=== PATIENT | female | born 1940 | race Caucasian/White ===

== ENCOUNTER 2023-09-23 18:34 | Emergency (ER) | payer MEDICARE, OTHER, SELFPAY ==
[2023-09-23 18:39] VITALS: BP 144/91
[2023-09-23 18:46] VITALS: BMI 32.9
[2023-09-23 18:58] LABS: % Basophils 0.3 % (0-2); % Eosinophils 1.2 % (0-6); % Immature Granulocytes 0.3 % (0-0.5); % Lymphocytes 24.5 % (20.5-51.1); % Monocytes 12.4 % (1.7-9.3); % Neutrophils 61.3 % (42.2-75.2); Absolute Eosinophils 0.1 10^3/uL (0-0.7); Absolute Lymphocytes 1.7 10^3/uL (1.2-3.4); Absolute Monocytes 0.9 10^3/uL (0.1-0.6); Absolute Neutrophils 4.2 10^3/uL (1.4-6.5); Hematocrit 33.5 % (37.0-47.0); Hemoglobin 11.4 g/dL (12.0-16.0); Mean Corpuscular Hgb 29.4 pg (27.0-31.0); Mean Corpuscular Volume 86.3 fL (81.0-99.0); Mean Platelet Volume 9.4 fL (7.4-10.4); Nucleated Red Blood Cells % 0 %; Platelet Count 229 10^3/uL (130-400); Red Blood Cell Count 3.88 10^6/uL (4.20-5.40); Red Cell Dist. Width 13.6 % (11.5-14.5); White Blood Cell Count 6.8 10^3/uL (4.8-10.8)
[2023-09-23 19:00] VITALS: BP 144/87
[2023-09-23 19:18] LABS: ALT (SGPT) 23 U/L (0-35); AST (SGOT) 26 U/L (14-36); Albumin 4.1 g/dl (3.5-5.0); Alkaline Phosphatase 98 U/L (38-126); Blood Urea Nitrogen 29 mg/dl (7-17); Calcium 9.6 mg/dl (8.4-10.2); Carbon Dioxide 26 mmol/L (22-30); Chloride 97 mmol/L (98-107); Estimated Creatinine Clearance 43 ml/min; Glucose 97 mg/dl (70-99); Potassium 4.3 mmol/L (3.5-5.1); Sodium 131 mmol/L (135-145); Total Bilirubin 0.3 mg/dl (0.2-1.3); Total Protein 6.2 g/dl (6.3-8.2); eGFR > 60.00
[2023-09-23 19:21] LABS: Troponin I < 0.012 ng/ml
[2023-09-23] MEDS: TORADOL 15 MG IV (19:27)
[2023-09-23 19:43] LABS: D-Dimer 0.44 ug/mlFEU (0.00-0.50)
--- NOTE | 2023-09-23 19:55 | ED.GENMED ---
History of Present Illness
General
Chief Complaint: Chest Pain
Source: patient
Exam Limitations: none
Time Seen by Provider: 09/23/23 19:10
Nursing documentation reviewed up to this point in time: agreed with
History of Present Illness
History of Present Illness:
Patient presents to ED secondary to worsening chest pain as well as shortness of breath today, although her symptoms have been ongoing for over 2 weeks intermittently. Chest pain described as sharp, left-sided, nonradiating, without any alleviating
or exacerbating factors. Denies trauma. Denies nausea or vomiting. Denies diaphoresis. Denies recent illness. Denies recent travel. Denies recent surgery. Denies leg pain or swelling. Denies coughing. At the time of exam in ED, patient
states that her symptoms have improved significantly.
Past History
Past History
ED Past Medical History: HTN, Hypercholesterolemia and Hypothyroidism
ED Past Surgical History: None
Social History
Tobacco: Non-smoker
Alcohol: None
Drug: None
Personal:
Living: with family
Review of Systems
Review of Systems
Allergies reviewed?: Yes
All Other Systems: ROS reviewed and negative except as documented in HPI and ROS
Constitutional: Reports no symptoms
EENT: Reports no symptoms
Respiratory: Reports trouble breathing
Cardiac: Reports chest pain
ABD/GI: Reports no symptoms
Musculoskeletal: Reports no symptoms
Skin: Reports no symptoms
Neurological: Reports no symptoms
Phy Exam
Physical Exam
Physical Exam:
Physical Exam
General: no apparent distress, not acutely ill. afebrile
Head: nc/at. eomi
Neck: supple. no meningeal signs.
Heart: s1/s2 regular rate and rhythm, no murmur. equal radial pulses.
Lungs: no acute respiratory distress. clear bilaterally. mild left anterior chest wall tenderness to palpation, without ecchymosis/erythema/swelling
Abdomen: normal bowel sounds. not tender.
Neuro: alert and oriented. no focal neurological deficits
Skin: no rash
Psychiatric: well kept. interactive and cooperative
Extremities: no edema. no calf tenderness.
Scores
Heart Score for Chest Pain Patients
STEMI patient?: No
History: Slightly or Non-Suspicious
ECG: Normal
Age: >/= 65 years
Risk Factors: 1 or 2 Risk Factors
Troponin: </= Normal Limit
Heart Score for Chest Pain Patients: 3
Heart Score Risk: 2.5% MACE over next 6 weeks
Course
Orders/Labs/Results
Orders:
Orders
09/23/23 18:49
EKG [Electrocardiogram (*1)] Urgent
Reason for Study: Chest Pain
EKG- Treatment ONCE
09/23/23 18:51
CMP [Comprehensive Metabolic Panel] Urgent
Complete Blood Count/With Diff Urgent
Troponin I Urgent
09/23/23 19:19
Ketorolac [Toradol] 15 mg IV NOW STA
09/23/23 19:20
CR Chest - 2 Views Urgent
Comment:
Reason For Exam: chest pain
09/23/23 19:22
D-Dimer Urgent
09/23/23 19:48
0.9% Sodium Chloride 1000 ml [Nss] 1,000 ml IV BOLUS
09/23/23 20:27
EKG- Treatment ONCE
09/23/23 21:30
Electrocardiogram (*1) Urgent
Reason for Study: Chest Pain
09/23/23 22:03
Troponin I Urgent
09/24/23 00:14
Rivaroxaban [Xarelto] 15 mg PO NOW STA
Abnormal Lab Results
09/23/23
18:51
RBC 3.88 L 10^6/uL
(4.20-5.40)
Hgb 11.4 L g/dL
(12.0-16.0)
Hct 33.5 L %
(37.0-47.0)
Absolute Monos (auto) 0.9 H 10^3/uL
(0.1-0.6)
Monocytes % 12.4 H %
(1.7-9.3)
Sodium 131 L mmol/L
(135-145)
Chloride 97 L mmol/L
(98-107)
BUN 29 H mg/dl
(7-17)
Total Protein 6.2 L g/dl
(6.3-8.2)
09/23/23 18:51
09/23/23 18:51
Vital Signs
Initial and Last Documented VS:
Initial Vital Signs
Temp Pulse Resp BP Pulse Ox
98.3 F 60 12 144/91 97
09/23/23 18:39 09/23/23 18:39 09/23/23 18:39 09/23/23 18:39 09/23/23 18:39
Last Documented Vital Signs
Temp Pulse Resp BP Pulse Ox
98.3 F 62 18 144/70 93
09/23/23 18:39 09/24/23 07:24 09/24/23 07:24 09/24/23 07:24 09/24/23 07:24
MDM/Problems Addressed
MDM/Problems Addressed:
Patient with an unremarkable workup in ED, including repeat blood work and EKG. Patient remains asymptomatic with stable vital signs during extended course of observation. History and exam does reveal likely dehydration, likely contributing to her
symptoms, as patient states that she is 'never thirsty'. As such, advised patient to increase water intake at home, along with cardiology follow-up as an outpatient.
*EKG
Interpreted by ED Provider?: Yes
EKG Intrepretation Date: 09/23/23
Heart Rate: 60
Rate: normal
Rhythm: ventricular paced
*Critical Care Note
Total Time (30-74mins, 75-104mins- exclusive of procedures): Not Applicable
ED Attending Note
-
Portions of this chart may have been created with voice recognition software.� Occasional wrong word or��sound alike� substitutions may have occurred due to the inherent limitations of voice recognition software.
Discharge Plan
Departure
Patient Disposition: Home (Routine Discharge)
Date of Disposition: 09/23/23
Time of Disposition: 23:34
Patient with high blood pressure during this ER visit?: Yes
Condition: Fair
Discharge Problem:
Dehydration, Chest pain
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
Prescriptions:
No Action
atorvastatin 20 MG tablet
20 mg PO QPM
levothyroxine 75 MCG tablet
100 mcg PO DAILY
aspirin 81 MG tablet,chewable
81 mg PO QPM
escitalopram oxalate [Lexapro] 10 mg Tablet
10 mg PO HS
isosorbide mononitrate 30 mg Tablet Extended Release 24 Hr
30 mg PO DAILY Qty: 1 0RF
nifedipine 30 mg Tablet Extended Release
30 mg PO QPM Qty: 1 0RF
metoprolol succinate 25 mg Tablet Extended Release 24 Hr
25 mg PO DAILY Qty: 1 0RF
Oyster Brian 500 mg Tablet
500 mg PO BID
memantine [Namenda] 5 mg Tablet
5 mg PO BID
Xarelto 15 mg Tablet
15 mg PO QPM
hydralazine 10 mg tablet
25 mg PO PRN PRN (Reason: sbp>180)
meclizine 12.5 mg Tablet
15 mg PO BID
Referrals:
UNKNOWN - PT DOES,NOT KNOW [Family Provider] -
Activity Restrictions/Additional Instructions:
As discussed, please follow-up with your primary care physician and/or sidewalk repairer for reevaluation.
Interventions
Interventions:
*Risk Screen - Suicide Last Done: 09/23/23 18:39
*General Assessment Last Done: 09/23/23 18:46
*Neglect/Abuse Screening Last Done: 09/23/23 18:39
ED- Fall Risk Assessment Last Done: 09/23/23 18:46
*ED COVID-19 Vaccine History Last Done: 09/23/23 18:39
*Nursing Disposition Last Done: 09/24/23 08:30
ED- Cardiac Assessment Last Done: 09/23/23 18:46
Discharge Date and Time
Discharge Date/Time: 09/24/23 08:45
Print Language: ICELANDIC
[2023-09-23 20:00] VITALS: BP 161/80
[2023-09-23] MEDS: NSS 1000 IV (20:45)
[2023-09-23 21:00] VITALS: BP 160/80
[2023-09-23 22:00] VITALS: BP 167/75
[2023-09-23 22:36] LABS: Troponin I < 0.012 ng/ml
[2023-09-23 23:00] VITALS: BP 149/76
[2023-09-24] MEDS: XARELTO 15 MG PO (01:45)
[2023-09-24 04:29] VITALS: BP 179/80
[2023-09-24 07:24] VITALS: BP 144/70
== END 2023-09-24 08:45 | disposition home or self-care (01) ==
LOC: EMR 18:34
PROVIDERS: Emergency Medicine; EMERGENCY PHYSICIAN Emergency Medicine
DX: R07.89 Other chest pain (principal); R06.02 Shortness of breath; R42 Dizziness and giddiness; E86.0 Dehydration; I10 Essential (primary) hypertension; E03.9 Hypothyroidism, unspecified; E78.00 Pure hypercholesterolemia, unspecified; Z79.82 Long term (current) use of aspirin
CPT/HCPCS: 99285; 96374; 96361 ×3; 71046; 80053; 84484; 85025; 85379; 93005

== ENCOUNTER → 2024-01-26 10:05 | Day surgery (SDC) | payer MEDICARE, OTHER, SELFPAY ==
[2024-01-26 11:16] LABS: Hematocrit 37.5 % (37.0-47.0); Hemoglobin 12.4 g/dL (12.0-16.0); Mean Corp Hgb Conc. 33.1 g/dL (33.0-37.0); Mean Corpuscular Hgb 29.7 pg (27.0-31.0); Mean Corpuscular Volume 89.9 fL (81.0-99.0); Mean Platelet Volume 9.8 fL (7.4-10.4); Platelet Count 264 10^3/uL (130-400); Red Blood Cell Count 4.17 10^6/uL (4.20-5.40); Red Cell Dist. Width 13.5 % (11.5-14.5); White Blood Cell Count 5.9 10^3/uL (4.8-10.8)
[2024-01-26 11:28] LABS: INR 1.21; PT 15.6 Sec (11.4-14.6)
[2024-01-26 11:29] LABS: APTT 35.8 Sec (23.4-35.0)
[2024-01-26 11:39] LABS: Blood Urea Nitrogen 17 mg/dl (7-17); Calcium 10.1 mg/dl (8.4-10.2); Carbon Dioxide 35 mmol/L (22-30); Chloride 94 mmol/L (98-107); Glucose 103 mg/dl (70-99); Potassium 4.5 mmol/L (3.5-5.1); Sodium 135 mmol/L (135-145); eGFR 49.86
== END ==
LOC: SDSPAT 10:05
PROVIDERS: ATTENDING PHYSICIAN Obstetrics & Gynecology; FAMILY PHYSICIAN Internal Medicine
DX: Z01.812 Encounter for preprocedural laboratory examination (principal)
CPT/HCPCS: 85027; 36415; 80048; 85610; 85730; 86850; 86900; 86901

== ENCOUNTER 2024-02-02 06:14 | Day surgery (SDC) | payer MEDICARE, OTHER, SELFPAY ==
[2024-01-26 13:47] VITALS: BMI 32.2
--- NOTE | 2024-01-28 09:33 | PTCARENOTE ---
Patients 01/25 GFR 49.86- Ivelisse @ Dr. Cooley office notified
[2024-02-02] VITALS (10 sets, daily range): BP systolic 96–140; BP diastolic 51–92; BMI 32.2
[2024-02-02] MEDS: NORMOSOL-R/PLASMALYTE-A 1000 IV (06:58)
== END 2024-02-02 12:00 | disposition home or self-care (01) ==
LOC: SDS 06:14
PROVIDERS: ATTENDING PHYSICIAN Obstetrics & Gynecology; FAMILY PHYSICIAN Internal Medicine
DX: N81.3 Complete uterovaginal prolapse (principal); N39.3 Stress incontinence (female) (male); N36.41 Hypermobility of urethra
CPT/HCPCS: 57120; 57250; 86900; 86901

== ENCOUNTER 2025-01-05 20:59 | Emergency (ER) | payer MEDICARE, OTHER, SELFPAY ==
[2025-01-05 21:02] VITALS: BP 143/87
[2025-01-05 21:03] VITALS: BP 143/87
[2025-01-05 21:20] LABS: Hematocrit 35.3 % (37.0-47.0); Hemoglobin 11.6 g/dL (12.0-16.0); Mean Corp Hgb Conc. 32.9 g/dL (33.0-37.0); Mean Corpuscular Volume 87.8 fL (81.0-99.0); Nucleated Red Blood Cells % 0 %; Platelet Count 198 10^3/uL (130-400); Red Cell Dist. Width 13.4 % (11.5-14.5)
[2025-01-05 21:41] LABS: ALT (SGPT) 33 U/L (0-35); AST (SGOT) 29 U/L (14-36); Albumin 4.1 g/dl (3.5-5.0); Alkaline Phosphatase 68 U/L (38-126); Blood Urea Nitrogen 22 mg/dl (7-17); Calcium 8.8 mg/dl (8.4-10.2); Carbon Dioxide 25 mmol/L (22-30); Chloride 102 mmol/L (98-107); Glucose 107 mg/dl (70-99); Potassium 4.0 mmol/L (3.5-5.1); Sodium 133 mmol/L (135-145); Total Protein 6.3 g/dl (6.3-8.2); eGFR > 60.00
[2025-01-05 22:00] VITALS: BP 119/79
[2025-01-05 22:09] VITALS: BP 135/78
--- NOTE | 2025-01-05 22:52 | ED.GENMED ---
History of Present Illness
General
Chief Complaint: Change in Mental Status
Source: family (Daughter)
Time Seen by Provider: 01/05/25 22:31
History of Present Illness
History of Present Illness:
84-year-old female presents to the emergency room with her daughter for evaluation of altered mental status. Daughter states the patient began speaking gibberish. Patient is fluent both [place] and Divehi but what she was speaking did not make
sense in either language. Patient seemed to be frustrated with her inability to get out what she was trying to say. Daughter took her blood pressure and noted that she was somewhat hypotensive with a systolic in the mid 80s. Daughter states the
patient looked pale at that time as well. She had taken her evening medications a little while prior to this event. However the patient is been on the same medications for years without any change in her dose. Daughter believes the patient does
not drink enough fluids. They have noticed the patient has become more confused over time. Though she has never been formally evaluated daughter feels quite certain that she has dementia. She has been sundowning over the past few weeks. Her
primary care doctor has prescribed Seroquel. Currently the patient is speaking normally and appears to be back to her baseline. Daughter notes the patient is currently taking both aspirin and Xarelto.
Past History
Past History
ED Past Medical History: HTN, Hypercholesterolemia and Hypothyroidism
ED Past Surgical History: None
Social History
Tobacco: Non-smoker
Alcohol: None
Drug: None
Personal:
Living: with family
Phy Exam
Physical Exam
Physical Exam:
General: Awake, Alert, Oriented X2. No acute distress.
Vitals: unremarkable
Head: Atraumatic
Eyes: Pupils equal, EOMI, mildly dry mucosa
Throat: Airway intact, no exudates
Neck: Trachea midline
Lungs: Clear and equal b/l
Heart: Regular rate, no murmurs
Abd: Soft, Nontender, No pulsatile mass
Neuro: Cranial nerves intact, muscle strength equal bilaterally, cerebellar exam normal
Skin: Warm, dry, no rash
Extremities: pulses equal b/l, no edema
Course
Orders/Labs/Results
Orders:
Orders
01/05/25 21:10
CMP [Comprehensive Metabolic Panel] Urgent
Complete Blood Count/With Diff Urgent
01/05/25 21:51
CT Head W/o Iv Contrast Urgent
Comment:
Reason For Exam: Change in mentation
01/05/25 22:36
Urinalysis Reflex To Culture Urgent
Date Specimen was Collected: 01/05/25
Time Specimen was Collected: 22:34
Urine Microscopic Reflex Cult Urgent
Urine Culture Urgent
KRISTINE Source: U
Specimen Description:
Date Specimen was Collected: 01/05/25
Time Specimen was Collected: 22:34
01/06/25 00:30
Cephalexin Monohydrate [Keflex] 500 mg PO NOW STA
Abnormal Lab Results
01/05/25 01/05/25
21:10 22:36
RBC 4.02 L 10^6/uL
(4.20-5.40)
Hgb 11.6 L g/dL
(12.0-16.0)
Hct 35.3 L %
(37.0-47.0)
MCHC 32.9 L g/dL
(33.0-37.0)
Absolute Monos (auto) 0.7 H 10^3/uL
(0.1-0.6)
Monocytes % 12.2 H %
(1.7-9.3)
Sodium 133 L mmol/L
(135-145)
BUN 22 H mg/dl
(7-17)
Glucose 107 H mg/dl
(70-99)
Ur Occult Blood Reflex 1+ A
(Negative)
Leukocyte Esterase Rfl 3+ A
(Negative)
Urine WBC (Reflex) >100 A /HPF
(0-5)
Urine Bacteria (Reflex) Many A
(Negative)
01/05/25 21:10
01/05/25 21:10
Vital Signs
Initial and Last Documented VS:
Initial Vital Signs
BP
143/87
01/05/25 21:02
Last Documented Vital Signs
Temp Pulse Resp BP Pulse Ox
98.1 F 61 19 126/73 97
01/05/25 21:03 01/06/25 00:45 01/06/25 00:40 01/06/25 00:40 01/06/25 00:40
MDM/Problems Addressed
Differential Diagnosis Includes:
TIA, dehydration, UTI
MDM/Problems Addressed:
Patient presents after a episode of confusion and difficulty communicating. Symptoms have resolved. Workup here shows no acute abnormalities on a head CT. No electrolyte abnormality. Mild prerenal azotemia. Urine is suggestive of a urinary
tract infection with greater than 100 WBCs per high-power field. Will cover with Keflex. Stable for discharge. Hospitalization in this patient should be avoided if possible was she has dementia with sundowning.
*Radiology
Radiology exam reviewed: radiology read reviewed
*Pulse Oximetry
SaO2: 95
Oxygen Mode of Delivery: Room air
Patient hypoxic: no
*Critical Care Note
Total Time (30-74mins, 75-104mins- exclusive of procedures): Not Applicable
ED Attending Note
-
Portions of this chart may have been created with voice recognition software.� Occasional wrong word or��sound alike� substitutions may have occurred due to the inherent limitations of voice recognition software.
Discharge Plan
Departure
Patient Disposition: Home (Routine Discharge)
Date of Disposition: 01/06/25
Time of Disposition: 00:31
Patient with high blood pressure during this ER visit?: No
Condition: Good
Discharge Problem:
Altered mental status, Acute UTI
Instructions: Altered Mental Status (DC), Urinary tract infection in adults - ED (DC)
Prescriptions:
New
cephalexin 500 mg capsule
500 mg PO BID 7 Days Qty: 14 0RF
No Action
atorvastatin 20 MG tablet
20 mg PO QPM
levothyroxine 75 MCG tablet
100 mcg PO DAILY
aspirin 81 MG tablet,chewable
81 mg PO QPM
escitalopram oxalate [Lexapro] 10 mg Tablet
10 mg PO HS
nifedipine 30 mg Tablet Extended Release
30 mg PO QPM Qty: 1 0RF
metoprolol succinate 25 mg Tablet Extended Release 24 Hr
25 mg PO DAILY Qty: 1 0RF
Oyster Brian 500 mg Tablet
500 mg PO BID
memantine [Namenda] 5 mg Tablet
5 mg PO BID
Xarelto 15 mg Tablet
15 mg PO QPM
hydralazine 10 mg tablet
25 mg PO PRN PRN (Reason: sbp>180)
meclizine 12.5 mg Tablet
15 mg PO BID PRN (Reason: dizziness)
isosorbide mononitrate 30 mg tablet extended release 24 hr
30 mg PO QPM
Referrals:
Alberto Goldman MD [Family Provider, Internal Medicine]
Interventions
Interventions:
*Risk Screen - Suicide Last Done: 01/05/25 21:03
*General Assessment Last Done: 01/05/25 21:03
*Neglect/Abuse Screening Last Done: 01/05/25 21:03
*ED- Fall Risk Assessment Last Done: 01/05/25 21:03
*ED COVID-19 Vaccine History Last Done: 01/05/25 21:03
*ED Influenza Vaccine History Last Done: 01/05/25 21:09
*Nursing Disposition Last Done: 01/06/25 01:04
ED- Pulmonary Assessment Last Done: 01/05/25 23:10
ED- Neurological Assessment Last Done: 01/05/25 23:10
ED- Cardiac Assessment Last Done: 01/05/25 23:10
ED Swallowing Screen Last Done: 01/05/25 23:10
Discharge Date and Time
Discharge Date/Time: 01/06/25 01:04
Print Language: CITIZEN OF [place]
[2025-01-05 23:00] VITALS: BP 147/78
[2025-01-05 23:53] LABS: Urine Character Clear (Clear)
[2025-01-06] VITALS: BP 142/76
[2025-01-06 00:09] LABS: Urine Squamous Cell >30 /LPF (Few); Urine Urothelial Cell >30 /LPF (FEW)
[2025-01-06 00:10] LABS: Urine Red Blood Cell 0-2 /HPF (0-2); Urine White Cell >100 /HPF (0-5)
[2025-01-06 00:40] VITALS: BP 126/73
[2025-01-06] MEDS: KEFLEX 500 MG PO (00:49)
== END 2025-01-06 01:04 | disposition home or self-care (01) ==
LOC: EMR 20:59
PROVIDERS: Emergency Medicine; Physician Assistant; EMERGENCY PHYSICIAN Emergency Medicine; FAMILY PHYSICIAN Internal Medicine
DX: N39.0 Urinary tract infection, site not specified (principal); R41.82 Altered mental status, unspecified; I10 Essential (primary) hypertension; E78.00 Pure hypercholesterolemia, unspecified; E03.9 Hypothyroidism, unspecified; Z79.01 Long term (current) use of anticoagulants; Z79.82 Long term (current) use of aspirin
CPT/HCPCS: 99284; 70450; 80053; 81003; 81015; 85025; 87077; 87086; 87186

== ENCOUNTER 2025-01-06 22:56 | Observation (INO) | payer MEDICARE, OTHER, SELFPAY ==
[2025-01-06 19:51] VITALS: BP 128/96
[2025-01-06 19:53] VITALS: BP 128/96; BMI 31.9
[2025-01-06 20:00] VITALS: BP 125/96
--- NOTE | 2025-01-06 20:00 | EDRN ---
Patient banging call lama on bedside rail, reports she is cold and needs another blanket, showed her how to use call lama.
[2025-01-06 20:06] LABS: Hematocrit 36.9 % (37.0-47.0); Hemoglobin 12.2 g/dL (12.0-16.0); Mean Corp Hgb Conc. 33.1 g/dL (33.0-37.0); Mean Corpuscular Volume 88.1 fL (81.0-99.0); Nucleated Red Blood Cells % 0 %; Platelet Count 206 10^3/uL (130-400); Red Cell Dist. Width 13.5 % (11.5-14.5)
--- NOTE | 2025-01-06 20:30 | EDRN ---
Patient daughter very upset because they are back again, charge nurse, Jovita Rn in at bedside talking with daughter about her concerns and Dr. High aware as well who has already been in to see patient prior to daughter getting here.
[2025-01-06 20:31] LABS: Blood Urea Nitrogen 22 mg/dl (7-17); Calcium 9.1 mg/dl (8.4-10.2); Carbon Dioxide 27 mmol/L (22-30); Chloride 102 mmol/L (98-107); Estimated Creatinine Clearance 31 ml/min; Glucose 128 mg/dl (70-99); Sodium 135 mmol/L (135-145); eGFR 40.55
[2025-01-06 21:00] VITALS: BP 132/74
--- NOTE | 2025-01-06 21:15 | EDRN ---
Dr. High in to see patient again and speak with daughter about her concerns, patient will be admitted to the hospital and given IV antibiotics here, daughter aware and ok with the plan
--- NOTE | 2025-01-06 21:21 | ED.GENMED ---
History of Present Illness
General
Chief Complaint: Change in Mental Status
Source: patient and family
Exam Limitations: dementia
Time Seen by Provider: 01/06/25 20:07
History of Present Illness
History of Present Illness:
Note:
CHIEF COMPLAINT(S)
Confusion and disorientation.
HISTORY OF PRESENT ILLNESS
The patient is an 84-year-old female presenting with confusion and disorientation. She reports feeling like 'something strange' has happened, but is unable to clearly articulate the nature of her symptoms or the onset. She mentions uncertainty about
what is happening and feels like something is wrong but states, 'Im not crazy.' Despite being confused, she denies experiencing any immediate distress or pain. She was alert but disoriented regarding the place and time during the conversation. No
recent specific events or aggravating factors were identified during the encounter.
PHYSICAL EXAM
General: Alert but confused, disoriented to place and time, speech is clear.
Cardiovascular: Heart rhythm is regular, no edema in extremities noted.
Respiratory: Lungs are clear to auscultation, no respiratory distress observed.
Neuroexam: No focal motor deficits, cranial nerves intact, extraocular muscle movement intact
Extremities: No edema, no cyanosis
Abdomen: Grossly nontender
PLAN
- Review of patients lab work and records for further insights into her condition.
- Continue administration of intravenous fluids as initiated.
- Provide supportive care, ensuring comfort and safety, including providing another blanket for warmth.
DIFFERENTIAL DIAGNOSIS
The Differential Diagnosis includes, in no particular order and is not limited to:
1. Delirium due to metabolic or infectious causes
2. Acute confusion secondary to dehydration
3. Electrolyte imbalance
4. Hypoglycemia
5. Medication-related adverse effects
6. Alzheimers disease exacerbation
7. Transient ischemic attack
8. Stroke
9. Urinary tract infection
10. Dementia-related confusion exacerbation
CARE-UPDATE
01/06/25 - 21:20
Daughter states that the patient was admitted with confusion, suspected to be related to a UTI, dehydration, or possibly a TIA. Daughter states that she exhibits ing behavior. Yesterday she had an event where she had difficulty with her
speech, alongside facial drooping noted. The patient was given Keflex at 1 AM, but had not had antibiotics for 24 hours due to pharmacy issues. Tonight after eating dinner daughter states that she became unresponsive and slightly sweaty and that
she could not wake her up. Symptoms were brief until the medics got there but medics did report hypotension initially. she responded positively to IV fluids and stabilization efforts.
Disposition:
SUMMARY OF ENCOUNTER
The 84-year-old female patient presented to the emergency department after her daughter observed her becoming diaphoretic and semi-responsive during dinner. She was initially hypotensive as noted by EMS. Suspecting a vasovagal event, she was
administered IV fluids, resulting in normotension. The patients daughter reports she has returned to her baseline status, though she did experience an episode of aphasia the previous day, raising suspicions of a transient ischemic attack (TIA). Her
recent labs and imaging, including normal CBC and a basic metabolic profile showing a slight increase in creatinine, were reviewed. Her previous CT demonstrated moderate age-related atrophy, small chronic lacunar infarcts in the right basal ganglia,
and chronic ischemic changes, but it was felt that a repeat CT was unnecessary at this time.
ASSESSMENT
The patients symptoms were possibly due to a vasovagal event. TIA is also considered due to yesterdays episode of aphasia, but current symptoms have resolved.
PLAN
Continue to monitor the patient closely. Consideration for modifying or reassessing her anticoagulant and antiplatelet therapy due to the possible TIA history.
INDEPENDENT REVIEW OF LABS AND INTERPRETATION OF TESTS
My independent review of the CBC is normal. My independent review of BMP indicates a change in creatinine from 0.9 to 1.3. My independent interpretation of previous CT indicates moderate age-related atrophy, small chronic lacunar infarcts at the
right basal ganglia, and white matter low attenuation, compatible with chronic ischemic changes.
MEDICATION RECONCILIATION
The patient is on apixaban (Eliquis) and antiplatelet agents.
MEDICAL DECISION MAKING
-Complexity of Data Reviewed: Chronic conditions affecting care include cerebrovascular disease. Differential diagnosis includes:
1. Delirium due to metabolic or infectious causes
2. Acute confusion secondary to dehydration
3. Electrolyte imbalance
4. Hypoglycemia
5. Medication-related adverse effects
6. Alzheimer�s disease exacerbation
7. Transient ischemic attack
8. Stroke
9. Urinary tract infection
10. Dementia-related confusion exacerbation
-Data:
Category 1
The CBC is normal, and BMP indicated a change in creatinine. The patients previous CT scan was reviewed, and it showed moderate age-related atrophy and chronic changes.
Category 2
Independent interpretation of prior CT scan shows chronic changes, validating the current management approach.
-Risk: The patient is on anticoagulant and antiplatelet therapy, which involves careful monitoring of bleeding and thromboembolic risks. As symptoms have resolved with IV fluids and supportive care, continuation of close monitoring is planned.
DIAGNOSIS
1. Suspected vasovagal syncope, ICD-10 code R55
2. Transient ischemic attack (suspected), ICD-10 code G45.9
Past History
Past History
ED Past Medical History: HTN, Hypercholesterolemia and Hypothyroidism
ED Past Surgical History: None
Social History
Tobacco: Non-smoker
Alcohol: None
Drug: None
Personal:
Living: with family
Phy Exam
Physical Exam
Physical Exam:
.
Course
Orders/Labs/Results
Orders:
Orders
01/06/25 19:58
Basic Metabolic Panel Urgent
Complete Blood Count/With Diff Urgent
01/06/25 21:21
CefTRIAXone [Rocephin] 1,000 mg IV NOW STA
Abnormal Lab Results
01/06/25
19:58
RBC 4.19 L 10^6/uL
(4.20-5.40)
Hct 36.9 L %
(37.0-47.0)
Absolute Monos (auto) 0.7 H 10^3/uL
(0.1-0.6)
Monocytes % 11.2 H %
(1.7-9.3)
BUN 22 H mg/dl
(7-17)
Creatinine 1.3 H mg/dL
(0.6-1.0)
Glucose 128 H mg/dl
(70-99)
01/06/25 19:58
01/06/25 19:58
Vital Signs
Initial and Last Documented VS:
Initial Vital Signs
BP
128/96
01/06/25 19:51
Last Documented Vital Signs
Temp Pulse Resp BP Pulse Ox
97.7 F 64 21 132/74 94
01/06/25 19:53 01/06/25 21:15 01/06/25 21:15 01/06/25 21:00 01/06/25 21:15
*Pulse Oximetry
SaO2: 94
Oxygen Mode of Delivery: Room air
Patient hypoxic: no
*Critical Care Note
Total Time (30-74mins, 75-104mins- exclusive of procedures): Not Applicable
ED Attending Note
-
Portions of this chart may have been created with voice recognition software.� Occasional wrong word or��sound alike� substitutions may have occurred due to the inherent limitations of voice recognition software.
Discharge Plan
Departure
Patient Disposition: Admit
Date of Disposition: 01/06/25
Time of Disposition: 21:24
Admit to: Telemetry
Presentation/result/management discussed w/ accepting MD/DO: Hospitalist
Discharge Problem:
Acute alteration in mental status, Acute UTI, Syncope
Prescriptions:
No Action
atorvastatin 20 MG tablet
20 mg PO QPM
levothyroxine 75 MCG tablet
100 mcg PO DAILY
aspirin 81 MG tablet,chewable
81 mg PO QPM
escitalopram oxalate [Lexapro] 10 mg Tablet
10 mg PO HS
nifedipine 30 mg Tablet Extended Release
30 mg PO QPM Qty: 1 0RF
metoprolol succinate 25 mg Tablet Extended Release 24 Hr
25 mg PO DAILY Qty: 1 0RF
Oyster Brian 500 mg Tablet
500 mg PO BID
memantine [Namenda] 5 mg Tablet
5 mg PO BID
Xarelto 15 mg Tablet
15 mg PO QPM
hydralazine 10 mg tablet
25 mg PO PRN PRN (Reason: sbp>180)
meclizine 12.5 mg Tablet
15 mg PO BID PRN (Reason: dizziness)
isosorbide mononitrate 30 mg tablet extended release 24 hr
30 mg PO QPM
cephalexin 500 mg capsule
500 mg PO BID 7 Days Qty: 14 0RF
Referrals:
FRANCOIS ROSARIO [Other]
Interventions
Interventions:
*Risk Screen - Suicide Last Done: 01/06/25 19:53
*General Assessment Last Done: 01/06/25 19:53
*Neglect/Abuse Screening Last Done: 01/06/25 19:53
*ED- Fall Risk Assessment Last Done: 01/06/25 19:53
*ED COVID-19 Vaccine History Last Done: 01/06/25 19:53
Discharge Date and Time
Print Language: [id number]
[2025-01-06] MEDS: ROCEPHIN 1000 MG IV (21:31)
[2025-01-06] MEDS: NSS 1000 IV (21:33)
[2025-01-06 22:00] LABS: ALT (SGPT) 33 U/L (0-35); AST (SGOT) 29 U/L (14-36); Potassium 4.0 mmol/L (3.5-5.1)
--- NOTE | 2025-01-06 22:03 | HPS.HSE ---
Addendum entered and electronically signed by Douglas Almendarez DO 01/06/25 23:31:
Patient seen and examined independently. Agree with findings and plan as set forth by GIANA Howard.
Patient is an 84y F with PMH significant for dementia, ASCVD, hypertension and thyroid disease who presents to ED for evaluation of confusion, diaphoresis and mumbling / decreased responsiveness. History obtained from daughter. Patient noted to
have slurred speech / somnolence with diaphoresis the past two evenings with dinner. Brought to ED last PM and diagnosed with UTI. Rx Keflex - but unable to fill that Rx today due to holiday. Patient had second, similar episode this evening and
returned to the ED. Currently she is awake, alert and pleasantly confused. No complaints.
No focal neurologic deficits appreciated on exam.
Ass:
Near-Syncope / Vasovagal Episode(s)
UTI
ANNIE
Benign Hypertension
ASCVD
Paroxysmal Atrial Fibrillation
Hypothyroidism
Plan:
Observe overnight for further evaluation and treatment.
IV abx for UTI pending culture data.
IVF support and follow for improvement in renal function.
Monitor on telemetry overnight.
PPM interrogated with no suspicious episodes (Atrial tach episode on 01/02 - not concurrent with presenting symptoms).
Continue usual home medications.
Update TFTs.
Original Note:
Family Physician
-
Family Physician: FRANCOIS ROSARIO
Chief Complaint
-
Diaphoretic, semiresponsive, hypotension tonight
History of Present Illness
84-year-old female presenting with confusion disorientation according to ER chart her daughter stated her mother became diaphoretic semi responsive during dinner she was noted to be hypotensive by EMS suspecting vasovagal event she was administered
IV fluids which halted and normotension. The patient's daughter said she is back at baseline which is advanced dementia. She did experience episode of speaking gibberish yesterday 01/05/2025 was seen in the ER CT showing chronic lacunar infarcts
in the right basal ganglia and chronic ischemia. Her confusion yesterday difficulty communicating was contributed to to UTI with greater than 100 WBCs she was discharged on Keflex 500 mg twice daily for 7 days. Was unable to get Keflex today due
to Thanksgiving. She also reports it is very difficult to get fluids into her mother to drink. Her daughter states she had prolapsed uterus repair approximately 1 year ago. She tends to at night and she forces napkins and any kind of
tissue paper into her vaginal area all the time due to her chronic demand confusion. Her daughter was made that she did show prior infarcts on MRI and CT from February 20, 2022 that the daughter was unaware of. She has history of E. coli in urine
February 2022, HTN, CVA right basal ganglia on CT, HLD, Graves' disease, parathyroidectomy, status post dual-chamber permanent pacemaker Medtronic 03/27/2022, CAD with stent LAD 2018, depression, chronic hand tremors.
Medical History
Past Medical History
Past Medical History: Reports Other
Additional Past Medical History:
E. coli in urine February 2022
HTN
CVA right basal ganglia on CT/MRI February 2022
HLD
Graves' disease
parathyroidectomy
status post dual-chamber permanent pacemaker Medtronic 03/27/2022
CAD with stent LAD 2018
depression
chronic hand tremors.
Past Surgical History: Reports Other
Additional Past Surgical History:
parathyroidectomy
status post dual-chamber permanent pacemaker Medtronic 03/27/2022
CAD with stent LAD 2018
Social History
Tobacco: Non-smoker
Alcohol: None
Drug: None
Personal: Single
Living: With Family (Daughter Shira)
Employment: Retired
Family History
Family History: Not pertinent
Allergies / Home Medications
Allergies reflects when Allergies were last updated in [facility].
Home Medications with original date entered in [facility]
Allergy/Medication List:
Allergies
Allergy/AdvReac Type Severity Reaction Status Date / Time
No Known Allergies Allergy Verified 01/06/25 19:58
Home Medications
aspirin 81 mg chewable tablet 81 mg PO QPM Blood clot prevention/tx 12/18/13
atorvastatin 20 mg tablet 20 mg PO QPM High cholesterol 12/18/13
levothyroxine 75 mcg tablet 100 mcg PO DAILY Thyroid 12/18/13
escitalopram oxalate 10 mg tablet (Lexapro) 10 mg PO HS Depression 02/12/22
nifedipine 30 mg tablet,extended release 30 mg PO QPM #1 tab 03/28/22
calcium 500 mg tablet 500 mg PO BID 09/23/23
memantine 5 mg tablet 5 mg PO BID 09/23/23
rivaroxaban 15 mg tablet (Xarelto) 15 mg PO QPM 09/23/23
isosorbide mononitrate 30 mg tablet,extended release 24 hr 30 mg PO DAILY 02/02/24
cephalexin 500 mg capsule 500 mg PO BID 7 days #14 caps 01/06/25
metoprolol succinate 25 mg tablet,extended release 24 hr 25 mg PO HS 01/06/25
quetiapine 25 mg tablet (Seroquel) 25 mg PO HS 01/06/25
Review of Systems
-
History Source: Patient and Family (Daughter Shira at bedside)
A 12 point ROS was completed and negative except as noted: Yes
Constitutional: Denies Chills
EENT: Denies Runny Nose
Respiratory: Denies Cough or Trouble Breathing
Cardiac: Reports Diaphoresis and Syncope; Denies Chest Pain
Abdomen/GI: Denies Abdominal Pain, Nausea, Vomiting or Diarrhea
: Reports Other (Daughter states unable to answer due to patient's dementia)
Musculoskeletal: Denies Joint Pain or Edema
Skin: Denies Itching or Rash
Neurological: Denies Dizzy
Endocrine: Reports No Symptoms
Hematologic/Lymphatic: Reports No Symptoms
Psych: Reports Calm
Physical Exam
Vital Signs
Vital Signs
Temp Pulse Resp BP Pulse Ox
97.7 F 64 21 132/74 94
01/06/25 19:53 01/06/25 21:15 01/06/25 21:15 01/06/25 21:00 01/06/25 21:23
Physical Exam
General: Conversant; No Pain, Fever or Chills
HEENT: NormoCephalic, Anicteric, PERRLA, [place] Conjunctivae and No Ptosis
Respiratory: Clear; No Wheezes or Rales
Cardiac: S1/S2 and Regular Rhythm; No Murmur, Rub, Gallop or Peripheral Edema
GI: Soft, Non Tender, Non Distended, Normal Bowel Sounds and No Hepatosplenomegaly
Rectal: Deferred by Provider
Genito-urinary: Deferred by me
Musculoskeletal: No Clubbing, No Cyanosis and No Edema
Skin: Warm and Dry; No Rash
Neuro: Awake, Alert and Oriented (To daughter only daughter states patient has dementia)
Psych: Calm
Laboratory Results
-
01/06/25 19:58
01/06/25 21:29
Laboratory Results
AST 29 U/L (14-36) 01/06/25 21:29
ALT 33 U/L (0-35) 01/06/25 21:29
Data Reviewed
-
Lab Data: Labs Reviewed by me
Impression/Plan
-
Impression/plan:
Observation telemetry
#Syncope likely vasovagal
#HTN�benign
Was hypotensive by EMS improved after IV fluid
BP 132/74
- Check orthostatic vitals
-Hold metoprolol succinate 25 mg at bedtime, nifedipine 30 mg every afternoon, Imdur 30 mg daily
- Consult PT/OT
#ANNIE 2/2 to poor oral intake
Creat 1.3 was 0.9 yesterday 01/05/2025
-IV NSS 1 L given a ER
-Continue IV NSS 80 cc an hour
- Follow BMP
#Suspected recent UTI 01/05/2025
#Previous E. coli UTI February 2022
WBC greater than 100 culture pending
Patient was placed on Keflex 500 mg twice daily x 7 days, did not roll picker from pharmacy yet as she was discharged 2 AM
- Was given Rocephin in ER
- Continue IV Rocephin
-Repeat UA/culture
- Follow urine culture from 01/05/2025
#A-fib 2022
#status post dual-chamber permanent pacemaker Medtronic 03/27/2022
-Continue Xarelto
- Pacemaker interrogation normal
#Prior CVA right basal ganglia per CT
-Continue aspirin, statin
CT head 01/05/2025: demonstrated moderate age-related atrophy, small chronic lacunar infarcts in the right basal ganglia, and chronic ischemic changes,
#Dementia�advance with history of sundowning recently per daughter
Continue Namenda 5 mg p.o. twice daily
- Will have as needed Seroquel 12.5 mg for agitation
#HLD
Continue atorvastatin 20 mg every afternoon
#Graves disease/parathyroidectomy
-Continue levothyroxine 100 mcg p.o. daily
-Check TSH with free T4 reflex
#CAD prior percutaneous coronary invention 2018
-Continue aspirin, statin hold beta-ayan due to vasovagal hypotension
#Depression
Continue Seroquel, Lexapro
#Chronic hand tremors
DVT prophylaxis
Continue MOLDER PIPE COVERING Xarelto 15 mg every afternoon
Full code per prior admission attempted to call patient's daughter did not roll picker
--- NOTE | 2025-01-06 22:05 | EDRN ---
Patient ambulated to the restroom and back in bed resting comfortably
--- NOTE | 2025-01-06 23:43 | PTCARENOTE ---
Pt arrived to room 424-01. Pt ambulated from stretcher to bed x1 assist. Pt AAOx1, disoriented to time, place. VSS. Pt oriented to room, call lama placed within reach.
[2025-01-06 23:55] VITALS: BP 153/86
[2025-01-07] VITALS (11 sets, daily range): BP systolic 120–184; BP diastolic 79–103; PULSE 82–94; BMI 30.7
[2025-01-07] MEDS: NSS 1000 IV ×2 (00:17→12:42)
[2025-01-07] MEDS: SYNTHROID 100 MCG PO (05:49)
[2025-01-07 06:32] LABS: Urine Character Clear (Clear)
[2025-01-07 07:04] LABS: Urine Red Blood Cell 0-2 /HPF (0-2); Urine Squamous Cell 21-25 /LPF (Few)
[2025-01-07] MEDS: NAMENDA 5 MG PO ×2 (07:39→21:20)
[2025-01-07] MEDS: OSCAL CAL 500 500 MG PO ×2 (07:41→21:13)
[2025-01-07 08:02] LABS: Hematocrit 33.6 % (37.0-47.0); Hemoglobin 11.1 g/dL (12.0-16.0); Mean Corp Hgb Conc. 33.0 g/dL (33.0-37.0); Mean Corpuscular Volume 89.8 fL (81.0-99.0); Nucleated Red Blood Cells % 0 %; Platelet Count 193 10^3/uL (130-400); Red Cell Dist. Width 13.6 % (11.5-14.5)
[2025-01-07 08:29] LABS: ALT (SGPT) 30 U/L (0-35); AST (SGOT) 24 U/L (14-36); Albumin 3.7 g/dl (3.5-5.0); Alkaline Phosphatase 78 U/L (38-126); Blood Urea Nitrogen 19 mg/dl (7-17); Calcium 8.8 mg/dl (8.4-10.2); Carbon Dioxide 29 mmol/L (22-30); Chloride 105 mmol/L (98-107); Estimated Creatinine Clearance 46 ml/min; Glucose 93 mg/dl (70-99); Potassium 3.8 mmol/L (3.5-5.1); Sodium 137 mmol/L (135-145); Total Protein 6.0 g/dl (6.3-8.2); eGFR > 60.00
[2025-01-07] MEDS: PROCARDIA XL (EXTENDED RELEASE) 30 MG PO ×2 (09:55→17:18)
[2025-01-07] MEDS: IMDUR (EXTENDED RELEASE) 30 MG PO (09:55)
--- NOTE | 2025-01-07 12:24 | CON.CAR ---
Addendum entered and electronically signed by Iggy Beckford DO 01/07/25 13:40:
I saw and examined the patient.
The Legal Investigator's note was reviewed and I agree with the note.
Comment:
Patient is a pleasant 84-year-old female with a past medical history significant for symptomatic bradycardia/sick sinus syndrome status post dual-chamber pacemaker 2022, (Medtronic), CAD with prior PCI to LAD 2018, paroxysmal atrial
fibrillation/atrial flutter, hypertension, hyperlipidemia, Graves' disease. Patient presented following near syncopal episode occurring overnight. Patient had become less responsive, altered mental status, diaphoretic. Patient given IV fluids and
low blood pressure resolved. Device was interrogated which demonstrated stable device sensing, pacing, impedances. Patient has brief episodes of atrial tachycardia which is chronic. Patient's AT noted to be on 01/02/2025 which does not correlate
with her episode of near syncope. Patient reports no loss of consciousness. Patient states that she is overall feeling well currently. Denies chest pain, shortness of breath, palpitations, lightheadedness, dizziness, or weakness.
GENERAL: no acute distress, obese
EYE: sclera anicteric
NECK: Supple, no JVD, no carotid bruit appreciated
ENT: normal nose, moist mucosal membranes
CARDIAC: Regular rate and rhythm, +S1/S2, no murmur, rubs, or gallops; left-sided CIED site well-healed
CHEST/PULMONARY: Normal effort, clear breath sounds
ABDOMEN: Soft, without focal tenderness or distention
NEUROLOGICAL: Alert and oriented x3
SKIN: Warm and dry, no rash
PSYCH: Normal and appropriate interaction.
Patient not on telemetry
EKG 01/06/2025 shows a paced V sensed rhythm
A/P as below
Patient with near syncopal episode while eating with altered mental status, diaphoresis, low blood pressure. Evaluation revealed urinary tract infection which was diagnosed prior however patient had not obtained antibiotic therapy for treatment.
Since provided IV fluids and antibiotics, patient reporting no complaints at this time. Device interrogation stable without arrhythmia correlating to symptoms. EKG a paced V sensed. Patient on Xarelto for A-fib and aspirin/statin for CAD.
Echocardiogram pending. If stable, unchanged, can follow-up with primary cosmetologist.
Original Note:
Consultation
Consultation Request
Date/Time Consultation Requested: 01/07/2025
Date/Time Consultation Performed: 01/07/2025
Requesting Provider: Dr. Reid
Performing Provider: Li Brooks PA-C for Dr. Beckford
Reason for Consultation: Near syncope
Medical History
-
History of Present Illness:
HPI: David is an 84 year old female with PMH of PPM, CAD w/ LAD PCI in 2019, paroxysmal atria fibrillation/flutter, HTN, HLD, and graves disease. Presented to [facility] ER for evaluation after she had episode of near syncope during dinner. Daughter
reported that during dinner she became less responsive and was diaphoretic. EMS was called and she was noted to be hypotensive on arrival. She was given IVFs and BP improved. PPM checked in ER and no arrhythmia noted at time of episode. Normal
device function. In ER, creat somewhat elevated, however improving on repeat following IVFs. BP improved, now somewhat hypertensive. No further syncope or near syncope noted. Feels well at this time with no cardiac complaints.
PMH:
Symptomatic bradycardia
post DC PPM Medtronic 03/27/22
CAD
s/p PCI LAD 2018
Paroxysmal atrial fibrillation
Chronic Xarelto anticoagulation
HTN
HLD
Graves disease
prior thyroidectomy
Past Medical History
Past Medical History: Other (In HPI)
Social History
Tobacco: Non-Smoker
Alcohol: None
Drug: None
Living: With Family
Employment: Retired
Family History
Family History: Reviewed & Not Pertinent
Allergies / Home Medications
Allergy/AdvReac Type Severity Reaction Status Date / Time
No Known Allergies Allergy Verified 01/06/25 19:58
�Medication �Instructions �Recorded �Confirmed �Type
aspirin 81 mg chewable tablet 81 mg PO QPM Blood clot 12/18/13 01/06/25 History
prevention/tx
atorvastatin 20 mg tablet 20 mg PO QPM High cholesterol 12/18/13 01/06/25 History
levothyroxine 75 mcg tablet 100 mcg PO DAILY Thyroid 12/18/13 01/06/25 History
escitalopram oxalate 10 mg tablet 10 mg PO HS Depression 02/12/22 01/06/25 History
(Lexapro)
nifedipine 30 mg tablet,extended 30 mg PO QPM #1 tab 03/28/22 01/06/25 Rx
release
calcium 500 mg tablet 500 mg PO BID Supplement 09/23/23 01/06/25 History
memantine 5 mg tablet 5 mg PO BID 09/23/23 01/06/25 History
rivaroxaban 15 mg tablet (Xarelto) 15 mg PO QPM Blood Clot 09/23/23 01/06/25 History
Prevention/Tx
isosorbide mononitrate 30 mg 30 mg PO DAILY Heart 02/02/24 01/06/25 History
tablet,extended release 24 hr Disease/Condition
metoprolol succinate 25 mg 25 mg PO HS Heart Disease/Condition 01/06/25 01/06/25 History
tablet,extended release 24 hr
quetiapine 25 mg tablet (Seroquel) 25 mg PO HS Mental Health/Anxiety 01/06/25 01/06/25 History
cephalexin 500 mg capsule 500 mg PO BID Infection 01/07/25 01/06/25 History
Review of Systems
-
History Source: Patient
All other systems: Negative unless noted
Physical Exam
Vital Signs
Temp Pulse Resp BP Pulse Ox
98.2 F 72 18 139/87 95
01/07/25 11:05 01/07/25 11:10 01/07/25 11:05 01/07/25 11:10 01/07/25 07:05
Lab Results
01/07/25 07:35
01/07/25 07:35
Physical Exam
General: Well Developed, Well Nourished and No Apparent Distress
HEENT: Moist Mucous Membranes
Respiratory: Clear and Non Labored Respirations
Cardiac: Regular Rhythm
Musculoskeletal: No Clubbing, No Cyanosis and No Edema
Skin: Warm and Dry
Neuro: Awake, Alert and Nonfocal/Grossly Intact
Psych: Calm
Impression / Plan
-
PCP: Dr. Goldman
Staff Trainer: Dr. Ochoa
Impression:
Near syncope, suspect vasovagal
E.coli UTI
ANNIE, improving
Symptomatic bradycardia
post DC PPM Medtronic 03/27/22
CAD
s/p PCI LAD 2018
Paroxysmal atrial fibrillation
Chronic Xarelto anticoagulation
HTN
HLD
Graves disease
prior thyroidectomy
Echo 02/18/2022: EF 55-60%, mild cLVH, no significant valvular disease
Plan:
-Presented after near syncopal episode while eating. Reportedly became less responsive and diaphoretic. Hypotensive when EMS arrived.
-Head CT without acute intracranial abnormality.
-Of note, patient was in ER the day before arrival due to UTI, however was unable to chicken picker abx due to the holiday.
-Suspect episode of near syncope was vasovagal. No further episodes noted this admission. Feeling well without complaints currently.
-No arrhythmia noted on device check. Normal device function.
-BP improved following IVFs. Continue nifedipine, Toprol, Imdur.
-Echo 02/2022 with preserved EF, no significant valvular disease. Repeat echo pending.
-Continue abx per primary service for E.coli UTI.
-h/o CAD w/ prior LAD PCI. Continue aspirin, statin.
-Continue Xarelto for h/o PAF. A paced on EKG.
-If echo stable, and no recurrent symptoms, would recommend follow up with primary cosmetologist, Dr. Ochoa.
HPI: David is an 84 year old female with PMH of PPM, CAD w/ LAD PCI in 2019, paroxysmal atria fibrillation/flutter, HTN, HLD, and graves disease. Presented to [facility] ER for evaluation after she had episode of near syncope during dinner. Daughter
reported that during dinner she became less responsive and was diaphoretic. EMS was called and she was noted to be hypotensive on arrival. She was given IVFs and BP improved. PPM checked in ER and no arrhythmia noted at time of episode. Normal
device function. In ER, creat somewhat elevated, however improving on repeat following IVFs. BP improved, now somewhat hypertensive. No further syncope or near syncope noted. Feels well at this time with no cardiac complaints.
Data Reviewed
-
EKG: Tracing Personally Visualized and interpreted
CT Scan: Report Reviewed by me
Labs: Labs Reviewed by me
Old Records: Reviewed
--- NOTE | 2025-01-07 13:09 | W.PN.HOSP.TC ---
Today's Communication/Plan
-
Assessment / Plan
Assessment / Plan
NAD
Scleral Anicteric
MMM
No JVD
CTABL
RRR, S1/S2
Soft, NT, ND, BS+
Warm, Dry
AAox1 (person)
vasovagal syncope
likely related to uti
ppm interogatted atach event on 01/02, not related to syncope at dinner last night
tele monitor
ivf
cards consult
ctx
orthostatics
uti
ctx
follow up ucx
tom resolved
afib - apaced rhym
bb
ac
hld
continue statin
cad s/p pci
continue asa statin
depression
continue seroquel and lexapro
Anticipated Discharge: 24 - 48 hours
Subjective/Interval History
-
Date of Service: January 07, 2025
seen and examined. no new complaints. no acute ovenrihgt events
Objective Data
-
Labs:
Laboratory Results
01/07/25
07:35
WBC 5.2
Hgb 11.1 L
Hct 33.6 L
Plt Count 193
Sodium 137
Potassium 3.8
Chloride 105
Carbon Dioxide 29
BUN 19 H
Creatinine 0.9
Glucose 93
Calcium 8.8
Total Bilirubin 0.4
AST 24
ALT 30
Alkaline Phosphatase 78
Vital Signs:
Vital Signs
Temp Pulse Resp BP Pulse Ox
98.2 F 72 18 139/87 95
01/07/25 11:05 01/07/25 11:10 01/07/25 11:05 01/07/25 11:10 01/07/25 07:05
I&O
01/06/25 01/07/25 01/08/25
06:59 06:59 06:59
Intake Total 240 / 240
Output Total 250 / 250
Balance - / -10
--- NOTE | 2025-01-07 15:02 | CM ---
CM reviewed chart, call to patients daughterShira, to complete initial assessment.
Patient is an 84y F with PMH significant for dementia, ASCVD, hypertension and thyroid disease who presents to ED for evaluation of confusion, diaphoresis and mumbling / decreased responsiveness.
Per daughter, patient resides with her in a multiple story home, bedroom first floor set up, bathroom in bedroom. One step to enter home.
Daughter provides care for patient, patient also has caregivers through waiver program, 7 days a week, about 8 hrs a day.
Daughter reports patient also attends adult day care, typically Friday, Friday, , pt has been refusing to go for past two weeks.
Daughter reports patient is independent with ambulation and does not use any assistive device.
Patient PCP Alberto Yañez, Pharmacy [facility].
CM discussed therapy recommendations of SNF- daughter adamantly refusing SNF- reports she will bring patient home and will continue with waiver program.
RASMUSSEN form verbally reviewed, placed in chart. Daughter will provide transport home when stable for d/c.
Plan; home with daughter, caregiver services through waiver, declining SNF
[2025-01-07] MEDS: LIPITOR 20 MG PO (17:18)
[2025-01-07] MEDS: XARELTO 15 MG PO (17:18)
[2025-01-07] MEDS: LOW STRENGTH ASPIRIN 81 MG PO (17:18)
[2025-01-07] MEDS: SEROQUEL 25 MG PO (21:16)
[2025-01-07] MEDS: TOPROL XL 25 MG PO (21:16)
[2025-01-07] MEDS: LEXAPRO 10 MG PO (21:16)
[2025-01-07] MEDS: ROCEPHIN 1000 MG IV (21:17)
[2025-01-07] MEDS: STERILE WATER FOR INJECTION 10 ML IV (21:18)
[2025-01-08 03:26] VITALS: BP 140/85
[2025-01-08] MEDS: SYNTHROID 100 MCG PO (06:03)
[2025-01-08 07:05] VITALS: BP 167/92
[2025-01-08 07:37] LABS: Hematocrit 35.5 % (37.0-47.0); Hemoglobin 11.9 g/dL (12.0-16.0); Mean Corp Hgb Conc. 33.5 g/dL (33.0-37.0); Mean Corpuscular Volume 89.0 fL (81.0-99.0); Platelet Count 222 10^3/uL (130-400); Red Cell Dist. Width 13.7 % (11.5-14.5)
[2025-01-08 08:16] LABS: Blood Urea Nitrogen 10 mg/dl (7-17); Calcium 9.2 mg/dl (8.4-10.2); Carbon Dioxide 28 mmol/L (22-30); Chloride 101 mmol/L (98-107); Estimated Creatinine Clearance 59 ml/min; Glucose 90 mg/dl (70-99); Potassium 4.1 mmol/L (3.5-5.1); Sodium 135 mmol/L (135-145); eGFR > 60.00
[2025-01-08] MEDS: IMDUR (EXTENDED RELEASE) 30 MG PO (09:55)
[2025-01-08] MEDS: OSCAL CAL 500 500 MG PO (09:55)
[2025-01-08] MEDS: NAMENDA 5 MG PO (09:55)
[2025-01-08 11:00] VITALS: BP 132/69; BP 173/98; BP 178/97
--- NOTE | 2025-01-08 12:00 | W.DCSUMMARY ---
Discharge Summary
Discharge Data
Date of Admission: 01/06/25
Date of Discharge: 01/08/25
-
Pending Results: No
Hospital Course
84 F history of E. coli in urine February 2022, HTN, CVA right basal ganglia on CT, HLD, Graves' disease, parathyroidectomy, status post dual-chamber permanent pacemaker Medtronic 03/27/2022, CAD with stent LAD 2018, depression, chronic hand tremor
Presented with confusion and increased sundowning along with hypotension. Found to be dehydrated and was provided IVF with improvement in mental status. Also, found to have an abnormal urinanalysis along with urine culture that was positve for
Ecoli. Will DC home with Vantin 200mg BID x 2 additional days to complete 3day course.
Head CT
IMPRESSION:
No acute intracranial abnormality.
seen and examined on the day of discharge which was 01/08. No new complaints. No acute overnight events
discussed case with daughter that is an UTILITY BILL COLLECTOR. She is agreeable with discharge. Informed her to increase her mom fluid intake and that I suspect the TME was more dehydration then acute infection
NAD
Scleral Anicteric
MMM
No JVD
CTABL
RRR, S1/S2
Soft, NT, ND, BS+
Warm, Dry
AAox1 (person)
More than 30 minutes spent in discharge including
Final examination of the patient
Summarizing hospital stay
Instructions for continuing care to all relevant caregivers
Preparation of discharge records, prescriptions, and referral forms
Total time spent (in minutes): 33mins
Discharge Plan
-
Patient Disposition: Home (Routine Discharge)
Discharge Diagnosis/Procedures: Dehydration
Ecoli UTI
Toxic metabolic encephalopathy
Condition: Fair
Diet: As tolerated
Additional Diets: Encourage PO intake
Activity: As tolerated
Activity Restrictions/Additional Instructions:
Presented with confusion and increased sundowning along with hypotension. Found to be dehydrated and was provided IVF with improvement in mental status. Also, found to have an abnormal urinanalysis along with urine culture that was positve for
Ecoli. Will DC home with Vantin 200mg BID x 2 additional days to complete 3day course.
Head CT
IMPRESSION:
No acute intracranial abnormality.
Referrals:
FRANCOIS ROSARIO [Other]
Prescriptions:
New
cefpodoxime 200 mg tablet
200 mg PO BID 2 Days Qty: 4 0RF
Continued
atorvastatin 20 MG tablet
20 mg PO QPM
levothyroxine 75 MCG tablet
100 mcg PO DAILY
aspirin 81 MG tablet,chewable
81 mg PO QPM
escitalopram oxalate [Lexapro] 10 mg Tablet
10 mg PO HS
nifedipine 30 mg Tablet Extended Release
30 mg PO QPM Qty: 1 0RF
calcium 500 mg Tablet
500 mg PO BID
memantine 5 mg Tablet
5 mg PO BID
Xarelto 15 mg Tablet
15 mg PO QPM
isosorbide mononitrate 30 mg tablet extended release 24 hr
30 mg PO DAILY
quetiapine [Seroquel] 25 mg Tablet
25 mg PO HS
metoprolol succinate 25 mg tablet extended release 24 hr
25 mg PO HS
Discontinued
cephalexin 500 mg capsule
500 mg PO BID
Rx Instructions:
was placed on this yesterday in ER, had 1 pill
Discharge Orders:
Discharge Patient (As Directed); Ordered 01/08/25
Ordered By: Juliocesar Reid
Discharge Date and Time
Print Language: CONGOLESE
== END 2025-01-08 13:49 | disposition home or self-care (01) ==
LOC: 4 WEST ACU 22:56
PROVIDERS: Clinical Nurse Specialist Family Health; ADMITTING PHYSICIAN Hospitalist; ATTENDING PHYSICIAN Hospitalist; CONSULT PHYSICIAN Internal Medicine Cardiovascular Disease; EMERGENCY PHYSICIAN Emergency Medicine
DX: N39.0 Urinary tract infection, site not specified (principal); E86.0 Dehydration; G92.8 Other toxic encephalopathy; R41.82 Altered mental status, unspecified; B96.20 Unspecified Escherichia coli [E. coli] as the cause of diseases classified elsewhere; F32.A Depression, unspecified; F03.93 Unspecified dementia, unspecified severity, with mood disturbance; I95.9 Hypotension, unspecified; G31.9 Degenerative disease of nervous system, unspecified; R47.01 Aphasia; N17.9 Acute kidney failure, unspecified; R00.1 Bradycardia, unspecified; I25.10 Atherosclerotic heart disease of native coronary artery without angina pectoris; I48.0 Paroxysmal atrial fibrillation; E78.00 Pure hypercholesterolemia, unspecified; I10 Essential (primary) hypertension; E89.0 Postprocedural hypothyroidism; I70.0 Atherosclerosis of aorta; I35.8 Other nonrheumatic aortic valve disorders; I35.1 Nonrheumatic aortic (valve) insufficiency; F05 Delirium due to known physiological condition; R55 Syncope and collapse; Z86.73 Personal history of transient ischemic attack (TIA), and cerebral infarction without residual deficits; Z79.890 Hormone replacement therapy; Z79.82 Long term (current) use of aspirin; Z79.01 Long term (current) use of anticoagulants; Z45.010 Encounter for checking and testing of cardiac pacemaker pulse generator [battery]; Z87.440 Personal history of urinary (tract) infections; Z79.899 Other long term (current) drug therapy; Z95.5 Presence of coronary angioplasty implant and graft; Z98.890 Other specified postprocedural states; Z90.89 Acquired absence of other organs
CPT/HCPCS: 80048; 80053; 81003; 81015; 84132; 84443; 84450; 84460; 85025; 85027; 87086; 93005; 93306; 96361; 96374; 97110; 97162; 99284; G0378